=== PATIENT | female | born 1950 | race Caucasian/White ===

== ENCOUNTER 2020-05-26 15:52 | Emergency (ER) | payer OTHER ==
[2020-05-26 16:26] VITALS: TEMP 98; BMI 25.2
[2020-05-26] MEDS ORDERED: amLODIPine BESYLATE 5 MG TABLET (FP) PO ONE (18:35)
[2020-05-26] MEDS ORDERED: amLODIPine BESYLATE 5 MG TABLET (FP) ONE (18:35)
[2020-05-26 19:08] LABS: CHLORIDE 103 mmol/L (98-107); POTASSIUM 4.7 mmol/L (3.5-5.1); SODIUM 138 mmol/L (136-145)
[2020-05-26 19:09] LABS: CALCIUM 8.4 mg/dL (8.5-10.1); INR 1.12 (0.83-1.09); PROTHROMBIN TIME (PATIENT) 13.7 SEC (9.7-13.0)
[2020-05-26 19:10] LABS: ALBUMIN 3.4 g/dl (3.4-5.0); ANION GAP 5 MMOL/L (8-16); BLOOD UREA NITROGEN 9.1 mg/dL (7-18); CO2 30 mmol/L (21-32); GLUCOSE,RANDOM 83 mg/dL (74-106)
[2020-05-26 19:13] LABS: CREATININE 0.5 mg/dL (0.55-1.3); SGOT/AST 53 U/L (15-37); SGPT/ALT 37 U/L (13-61)
[2020-05-26 19:15] LABS: BILIRUBIN,TOTAL 0.4 mg/dL (0.2-1); TOT PROT 7.5 g/dl (6.4-8.2)
[2020-05-26 19:16] LABS: ALK PHOS 58 U/L (45-117)
[2020-05-26] MEDS ORDERED: ONDANSETRON 4 MG/2 ML VIAL IVPUSH ONE (19:47)
[2020-05-26] MEDS ORDERED: SODIUM CHLORIDE 0.9% 500 ML INFUS.BAG IV ONE (19:47)
[2020-05-26] MEDS ORDERED: ACETAMINOPHEN 1000 MG/100 ML VIAL (NON FORMULARY) IVPB ONE (19:47)
[2020-05-26] MEDS ORDERED: MAG HYDROX/AL HYDROX/SIMETH 30 ML UNIT-DOSE CUP PO ONE (19:48)
[2020-05-26] MEDS ORDERED: FAMOTIDINE 20 MG/50 ML IVPB 20 MG/50 ML MG IVPB ONE ×2 (19:48→20:05)
[2020-05-26] MEDS ORDERED: ACETAMINOPHEN INJECTION 100 ML IVPB ONE (20:04)
[2020-05-26] MEDS ORDERED: ONDANSETRON 4 MG/2 ML VIAL ONE (20:05)
[2020-05-26] MEDS ORDERED: MAG HYDROX/AL HYDROX/SIMETH 30 ML UNIT-DOSE CUP ONE (20:05)
[2020-05-26 20:19] LABS: BASO % 0.5 % (0-2.0); EOS % 0.3 % (0-4.5); HEMATOCRIT 43.9 % (32.4-45.2); HEMOGLOBIN 14.4 GM/dL (10.7-15.3); LYMPH % 21.2 % (8-40); MCH 30.9 pg (25.7-33.7); MCHC 32.8 g/dl (32.0-36.0); MEAN CELL VOLUME 94.2 fl (80-96); MEAN PLT VOLUME 7.9 fl (7.5-11.1); MONO % 8.1 % (3.8-10.2); NEUT % 69.9 % (42.8-82.8); PLATELET COUNT 261 K/MM3 (134-434); RBC 4.66 M/mm3 (3.60-5.2); RDW 13.7 % (11.6-15.6); WHITE BLOOD COUNT 4.3 K/mm3 (4.0-10.0)
[2020-05-26 22:42] VITALS: BP 126/82; PULSE 86
== END 2020-05-26 22:40 | disposition home or self-care (01) ==
LOC: JER 15:52
PROC: 3E033GC Introduction of Other Therapeutic Substance into Peripheral Vein, Percutaneous Approach (ICD-10-PCS; principal; 2020-05-26)
DX: U07.1 COVID-19 (principal)
CPT/HCPCS: 36415; 71045-TC-FY; 71275-TC; 80053; 84484; 85025; 85379; 85610; 93005; 93010; 99285-25; J0131; Q9967

== ENCOUNTER 2020-09-26 11:07 | Day surgery (SDC) | payer OTHER ==
[2020-09-26 11:35] VITALS: BMI 28.8
[2020-09-26] MEDS ORDERED: DEXAMETHASONE SOD PHOSPHATE 10 MG/1 ML VIAL ONE (12:20)
[2020-09-26] MEDS ORDERED: BUPIVACAINE HCL/PF 0.5% (5 MG/ML) 30 ML VIAL IJ ONE (12:20)
[2020-09-26] MEDS ORDERED: MIDAZOLAM HCL 2 MG/2 ML SINGLE DOSE VIAL ONE (12:20)
[2020-09-26] MEDS ORDERED: PROPOFOL 20 ML ONE (13:25)
[2020-09-26] MEDS ORDERED: ePHEDrine SULFATE 50 MG/1 ML AMPULE ONE (13:33)
[2020-09-26] MEDS ORDERED: ceFAZolin SODIUM 1 GM VIAL ONE (14:06)
[2020-09-26] MEDS ORDERED: ONDANSETRON 4 MG/2 ML VIAL ONE (14:06)
[2020-09-26] MEDS ORDERED: DEXAMETHASONE SOD PHOSPHATE 4 MG/1 ML VIAL ONE (14:06)
[2020-09-26] MEDS ORDERED: KETOROLAC TROMETHAMINE 30 MG/1 ML VIAL ONE (14:06)
[2020-09-26] MEDS ORDERED: PROMETHAZINE HCL 25 MG/1 ML VIAL IVPUSH PRN (14:44)
[2020-09-26] MEDS ORDERED: ONDANSETRON 4 MG/2 ML VIAL IVPUSH PRN (14:44)
[2020-09-26] MEDS ORDERED: oxyCODONE HCL 5 MG TABLET PO PRN ×2 (14:44)
[2020-09-26 16:19] VITALS: TEMP 97
[2020-09-26 17:25] VITALS: BP 128/65; PULSE 90
== END 2020-09-26 17:25 | disposition home or self-care (01) ==
LOC: FASU 11:07
PROVIDERS: ATTEND Orthopaedic Surgery
PROC: 0PB94ZZ Excision of Right Clavicle, Percutaneous Endoscopic Approach (ICD-10-PCS; 2020-09-26)
PROC: 0RNJ4ZZ Release Right Shoulder Joint, Percutaneous Endoscopic Approach (ICD-10-PCS; 2020-09-26)
PROC: 0RNJ4ZZ Release Right Shoulder Joint, Percutaneous Endoscopic Approach (ICD-10-PCS; principal; 2020-09-26 13:59)
PROC: 0RNJ4ZZ Release Right Shoulder Joint, Percutaneous Endoscopic Approach (ICD-10-PCS; 2020-09-26 13:59)
DX: M75.41 Impingement syndrome of right shoulder (principal); M75.01 Adhesive capsulitis of right shoulder; M19.011 Primary osteoarthritis, right shoulder; S43.431A Superior glenoid labrum lesion of right shoulder, initial encounter; S46.111A Strain of muscle, fascia and tendon of long head of biceps, right arm, initial encounter; X58.XXXA Exposure to other specified factors, initial encounter; Y93.9 Activity, unspecified; Y92.9 Unspecified place or not applicable
CPT/HCPCS: 82962; 88304-TC; 94760; J1100